=== PATIENT | female | born 1970 | race Caucasian/White ===

== ENCOUNTER 2020-01-29 17:28 | Emergency (ER) | payer OTHER ==
[~2020-01-29] VITALS: Ht 165.1 cm; Wt 72.6 kg
--- NOTE | 2020-01-29 17:33 | NUR ---
BIBRA40/OD FOR OTB C/O HEADACHE SINCE THIS MORNING. CHEST PRESSURE THIS MORNING BUT RESOLVED. TO ER BED 11, HOOKED TO MONITOR, AWAITING MD SANDOVAL
--- NOTE | 2020-01-29 17:34 | NUR ---
CHERELLE PRATT AT BEDSIDE
[2020-01-29] MEDS ORDERED: LORAZEPAM 0.5 MG TABLET ONE (17:53)
[2020-01-29] MEDS ORDERED: ACETAMINOPHEN ES 500 MG TABLET ONE (17:54)
[2020-01-29] MEDS ORDERED: ACETAMINOPHEN 325 MG TABLET PO ONE (18:00)
[2020-01-29] MEDS ORDERED: LORAZEPAM 0.5 MG TABLET PO ONE (18:00)
--- NOTE | 2020-01-29 18:21 | NUR ---
Patient discharged in custody of Officer Jerardofaustobipin [id number] [address] in stable condition. Written and verbal after care instructions given. Patient and officers verbalizes understanding of instruction.
[2020-01-29 18:23] VITALS: BP 132/74
== END 2020-01-29 18:23 ==
LOC: ER 17:30
DX: R51 Headache (principal); F41.9 Anxiety disorder, unspecified; F32.9 Major depressive disorder, single episode, unspecified; Z02.89 Encounter for other administrative examinations